=== PATIENT | female | born 1950 | race Caucasian/White ===

== ENCOUNTER 2016-09-27 22:56 | Emergency (ER) | payer MEDICAID, OTHER ==
[~2016-09-27] VITALS: Ht 170.2 cm; Wt 79.4 kg
[~2016-09-27 22:56] MED LIST: LORA1TAB PO; NAPR500T PO; PRIM250T PO; RISP2TAB23 PO; SERT25TA PO
[2016-09-27] MEDS ORDERED: IV NORMAL SALINE 1000 ML BAG IV ONE (23:30)
[2016-09-27] MEDS ORDERED: ONDANSETRON IV *ER 4 MG/2 ML VIAL IV ONE (23:30)
[2016-09-27] MEDS ORDERED: HYDROMORPHONE 1 MG/1 ML DISP.SYRIN IV ONE (23:30)
[2016-09-27] MEDS ORDERED: DIPHENOXYLATE HCL/ATROP SULF TABLET PO ONE (23:30)
[2016-09-27] MEDS ORDERED: HYDROMORPHONE 1 MG/1 ML DISP.SYRIN ONE (23:36)
[2016-09-27] MEDS ORDERED: DIPHENOXYLATE HCL/ATROP SULF TABLET ONE (23:36)
[2016-09-27] MEDS ORDERED: ONDANSETRON 4 MG/2 ML VIAL ONE (23:36)
[2016-09-27 23:40] LABS: BASOPHILS % (AUTO) 0.6 % (0.0-2.0); EOSINOPHILS # (AUTO) 0.3 K/uL (0.0-0.7); EOSINOPHILS % (AUTO) 4.5 % (0.0-7.0); HEMOGLOBIN 12.9 G/DL (12.0-16.0); LYMPHOCYTES # (AUTO) 1.8 K/UL (0.8-4.8); LYMPHOCYTES % (AUTO) 30.3 % (20.5-51.5); MEAN CORPUSCULAR HEMOGLOBIN 28.2 UUG (27.0-31.0); MEAN CORPUSCULAR HGB CONC 32 g/dL (32.0-37.0); MEAN CORPUSCULAR VOLUME 87.3 FL (81.0-99.0); MONOCYTES # (AUTO) 0.6 K/UL (0.1-1.30); MONOCYTES % (AUTO) 9.4 % (0.0-11.0); NEUTROPHILS # (AUTO) 3.2 K/UL (1.8-8.9); NEUTROPHILS % (AUTO) 55.2 % (38.5-71.5); PLATELET COUNT (AUTO) 148 K/UL (150-450); RED BLOOD CELL COUNT(AUTO) 4.58 MIL/UL (4.2-5.4); RED CELL DISTRIBUTION WIDTH 12.9 % (11.5-14.5); WHITE BLOOD COUNT (AUTO) 5.9 K/UL (4.0-11.2)
--- NOTE | 2016-09-27 23:40 | NUR ---
iv placed, labs placed, meds administered, 1l 0.9ns bolus infusing, iv placed. pt positioned for comfort.
[2016-09-28] MEDS ORDERED: predniSONE 10 MG TABLET PO ONE
[2016-09-28] MEDS ORDERED: ALBUTEROL SULFATE 2.5 MG/3 ML NEBU NEB ONE
[2016-09-28] MEDS ORDERED: IPRATROPIUM BROMIDE 0.5 MG/2.5 ML NEBU NEB ONE
[2016-09-28 00:01] LABS: ALBUMIN 4.4 g/dL (3.4-5.0); BILIRUBIN,DIRECT 0.1 mg/dL (0.0-0.2); BILIRUBIN,TOTAL 0.4 mg/dL (0.2-1.0); CALCIUM 9.2 mg/dL (8.5-10.1); CREATININE 0.8 mg/dL (0.6-1.3); POTASSIUM 3.4 mmol/L (3.5-5.1); TOTAL PROTEIN, SERUM 7.5 g/dL (6.4-8.2)
[2016-09-28] MEDS ORDERED: ALBUTEROL SULFATE 2.5 MG/3 ML NEBU ONE (00:07)
[2016-09-28] MEDS ORDERED: IPRATROPIUM BROMIDE 0.5 MG/2.5 ML NEBU ONE (00:08)
[2016-09-28] MEDS ORDERED: predniSONE 10 MG TABLET ONE (00:11)
[2016-09-28] MEDS ORDERED: predniSONE 50 MG TABLET ONE (00:11)
--- NOTE | 2016-09-28 00:12 | NUR ---
all meds administered. pt receiving resp tx. pt positioned for comfort.
--- NOTE | 2016-09-28 00:40 | NUR ---
mse completed, meds administered, iv d/c'd intact, pt d/c'd home, rx x 3 and aci/copy of tests results given. pt got dressed and ambulated w/o diff/took all belongings.
[2016-09-28 00:54] VITALS: BP 156/89
== END 2016-09-28 00:40 | disposition home or self-care (01) ==
LOC: ER 22:56
DX: R19.7 Diarrhea, unspecified (principal); J44.9 Chronic obstructive pulmonary disease, unspecified; J20.9 Acute bronchitis, unspecified; G89.29 Other chronic pain; E78.5 Hyperlipidemia, unspecified; F31.9 Bipolar disorder, unspecified; F41.9 Anxiety disorder, unspecified; F10.20 Alcohol dependence, uncomplicated; F17.200 Nicotine dependence, unspecified, uncomplicated
CPT/HCPCS: 36415; 71010; 80048; 80076; 83690; 85025; 85730; 94640; 96361; 96374; 96375; 99285; 99406; A4663; J1170; J2405; J3590; J7030; J7512 ×2

== ENCOUNTER 2017-08-04 14:43 | Emergency (ER) | payer MEDICAID, MEDICARE ==
[~2017-08-04] VITALS: Ht 170.2 cm; Wt 74.8 kg
[~2017-08-04 14:43] MED LIST changes: +NAPR-1164 PO; -NAPR500T PO
[2017-08-04] MEDS ORDERED: LOPERAMIDE HCL 2 MG CAPSULE PO ONE (15:00)
[2017-08-04] MEDS ORDERED: ONDANSETRON ODT 4 MG TAB.RAPDIS SL ONE (15:00)
[2017-08-04 15:21] LABS: BASOPHILS % (AUTO) 0.3 % (0.0-2.0); EOSINOPHILS # (AUTO) 0.4 K/uL (0.0-0.7); EOSINOPHILS % (AUTO) 4.8 % (0.0-7.0); HEMATOCRIT 39.4 % (31.2-41.9); HEMOGLOBIN 13.4 g/dL (10.9-14.3); LYMPHOCYTES # (AUTO) 0.9 K/uL (20.0-40.0); LYMPHOCYTES % (AUTO) 11.6 % (20.5-51.5); MEAN CORPUSCULAR HEMOGLOBIN 29.8 uug (24.7-32.8); MEAN CORPUSCULAR HGB CONC 34 g/dL (32.3-35.6); MEAN CORPUSCULAR VOLUME 87.9 fL (75.5-95.3); MONOCYTES # (AUTO) 0.7 K/uL (2.0-10.0); MONOCYTES % (AUTO) 9.1 % (0.0-11.0); NEUTROPHILS # (AUTO) 5.5 K/uL (1.8-8.9); NEUTROPHILS % (AUTO) 74.2 % (38.5-71.5); PLATELET COUNT (AUTO) 153 K/uL (179-408); RED BLOOD CELL COUNT(AUTO) 4.49 MIL/uL (3.63-4.92); WHITE BLOOD COUNT (AUTO) 7.4 K/uL (3.8-11.8)
[2017-08-04 15:26] LABS: CREATININE 0.7 mg/dL (0.6-1.3); POTASSIUM 3.7 mmol/L (3.5-5.1)
[2017-08-04 15:32] LABS: BILIRUBIN,DIRECT 0.1 mg/dL (0.0-0.2); BILIRUBIN,TOTAL 0.6 mg/dL (0.2-1.0); TOTAL PROTEIN, SERUM 6.8 g/dL (6.4-8.2)
[2017-08-04] MEDS ORDERED: ONDANSETRON ODT 4 MG TAB.RAPDIS ONE (15:41)
[2017-08-04] MEDS ORDERED: LOPERAMIDE HCL 2 MG CAPSULE ONE (15:42)
[2017-08-04] MEDS ORDERED: DIPHENOXYLATE HCL/ATROP SULF TABLET PO ONE (16:30)
[2017-08-04] MEDS ORDERED: DIPHENOXYLATE HCL/ATROP SULF TABLET ONE (16:56)
--- NOTE | 2017-08-04 17:00 | NUR ---
[facility] [place] provided for pt per pt request.
--- NOTE | 2017-08-04 17:06 | NUR ---
Patient discharged to home in stable conditon. Written and verbal after care instructions given. Patient verbalizes understanding of instructions.pt walks in srteady gait
[2017-08-04 17:09] VITALS: BP 119/59
== END 2017-08-04 17:00 | disposition home or self-care (01) ==
LOC: ER 14:45
DX: G89.29 Other chronic pain (principal); R10.30 Lower abdominal pain, unspecified; R19.7 Diarrhea, unspecified; R00.0 Tachycardia, unspecified; E78.5 Hyperlipidemia, unspecified; F17.210 Nicotine dependence, cigarettes, uncomplicated; Z79.1 Long term (current) use of non-steroidal anti-inflammatories (NSAID); Z79.899 Other long term (current) drug therapy; R10.9 Unspecified abdominal pain
CPT/HCPCS: 36415; 71045; 83690; 85025; 93005; A4663; Q0162

== ENCOUNTER → 2017-11-21 | Emergency (ER) | payer MEDICARE, MEDICAID ==
[~2017-11-21] VITALS: Ht 170.2 cm; Wt 63.5 kg
--- NOTE | 2017-11-21 18:27 | NUR ---
CALLED IN - NOT IN WAITING ROOM.
== END | disposition left against medical advice (07) ==
LOC: ER 15:16
DX: Z53.21 Procedure and treatment not carried out due to patient leaving prior to being seen by health care provider (principal)
CPT/HCPCS: A4663

== ENCOUNTER 2020-11-01 19:17 | Emergency (ER) | payer MEDICARE, OTHER ==
[~2020-11-01] VITALS: Ht 170.2 cm; Wt 89.8 kg
[~2020-11-01 19:17] MED LIST changes: -RISP2TAB23 PO; +RISP2TAB85 PO
--- NOTE | 2020-11-01 19:20 | NUR ---
Patient BIB [facility] from doctors office. Per EMS EKG was done at office which showed PVC and advised patient to go to the ER. Patient A&O x4. ambulatory with stable gait. denies any CP, dizziness, blurred vision. Speaks in clear sentences. EKG done that showed sinus rhythm with a rate of 91 with no PVC's noted
--- NOTE | 2020-11-01 19:25 | NUR ---
Dr. Martell at bedside for MSE
[2020-11-01 20:20] LABS: HEMATOCRIT 37.6 % (31.2-41.9); MEAN CORPUSCULAR HEMOGLOBIN 29.2 uug (24.7-32.8); MEAN CORPUSCULAR VOLUME 86.9 fL (75.5-95.3); PLATELET COUNT (AUTO) 165 K/uL (179-408)
[2020-11-01 20:23] LABS: CREATININE 0.8 mg/dL (0.6-1.3); POTASSIUM 3.5 mmol/L (3.5-5.1)
--- NOTE | 2020-11-01 20:46 | NUR ---
Patient discharged to home in stable condition. Written and verbal after care instructions given. Patient verbalizes understanding of instructions. Stressed follow up or return to ER for worsening s/s. Patient ambulating with steady gait. NAD noted
[2020-11-01 20:47] VITALS: BP 122/79
== END 2020-11-01 20:47 | disposition home or self-care (01) ==
LOC: ER 19:17
DX: Z03.89 Encounter for observation for other suspected diseases and conditions ruled out (principal); E78.5 Hyperlipidemia, unspecified; F31.9 Bipolar disorder, unspecified; G25.0 Essential tremor; G25.81 Restless legs syndrome; Z79.899 Other long term (current) drug therapy
CPT/HCPCS: 36415; 73130; 85025; 93005; A4663